=== PATIENT | female | born 1940 | race Caucasian/White ===

== ENCOUNTER 2017-09-13 18:02 | Emergency (ER) | payer OTHER ==
[~2017-09-13] VITALS: Ht 160 cm; Wt 65.8 kg
[~2017-09-13 18:02] MED LIST: EVISTA; FOSAMAX 70 MG T70 MG PO; NORCO 5-325 TA1 EACH PO
[2017-09-13 19:40] VITALS: BP 158/77
== END 2017-09-13 19:42 | disposition home or self-care (01) ==
LOC: ER 18:02
DX: S01.112A Laceration without foreign body of left eyelid and periocular area, initial encounter (principal); W01.0XXA Fall on same level from slipping, tripping and stumbling without subsequent striking against object, initial encounter; Y93.89 Activity, other specified; Y92.89 Other specified places as the place of occurrence of the external cause; Y99.8 Other external cause status; Z90.710 Acquired absence of both cervix and uterus; Z88.8 Allergy status to other drugs, medicaments and biological substances

== ENCOUNTER 2018-01-31 12:08 | Emergency (ER) | payer OTHER ==
[~2018-01-31] VITALS: Ht 160 cm; Wt 65.3 kg
[2018-01-31 13:45] VITALS: BP 139/52
== END 2018-01-31 13:50 | disposition home or self-care (01) ==
LOC: ER 12:08
DX: S01.81XA Laceration without foreign body of other part of head, initial encounter (principal); M81.0 Age-related osteoporosis without current pathological fracture; Z88.8 Allergy status to other drugs, medicaments and biological substances; Z90.710 Acquired absence of both cervix and uterus; W01.0XXA Fall on same level from slipping, tripping and stumbling without subsequent striking against object, initial encounter; Y93.89 Activity, other specified; Y92.89 Other specified places as the place of occurrence of the external cause; Y99.8 Other external cause status